=== PATIENT | female | born 1985 | race Caucasian/White ===

== ENCOUNTER 2018-07-18 06:21 | Day surgery (SDC) | payer BC ==
[2018-07-18] MEDS ORDERED: Propofol 200 MG/20 ML SDV ONE (06:59)
[2018-07-18] MEDS ORDERED: Lidocaine 2% 5 ML SDV ONE (06:59)
[2018-07-18] MEDS ORDERED: fentaNYL 100 MCG/2 ML SDV ONE (06:59)
[2018-07-18] MEDS ORDERED: Midazolam 1 MG/ML 2 ML SDV ONE (06:59)
--- NOTE | 2018-07-18 07:12 | PCM.PREANE ---
Preanesthetic Assessment - Anesthesia/Transfusion/Family Hx Anesthesia History: Prior Anesthesia Without Reaction Type of Anesthesia Reaction: Excessive Itching (from narcotics) Other Type of Anesthesia Reaction Comment: "I wake up panicky" Family History of Anesthesia Reaction: No Transfusion History: No Prior Transfusion(s) Intubation History: Unknown - Review of Systems General: No Symptoms Pulmonary: No Symptoms Cardiovascular: No Symptoms Gastrointestinal: No Symptoms Neurological: No Symptoms Other: Reports: None - Physical Assessment O2 Sat by Pulse Oximetry: 95 Respiratory Rate: 16 Vital Signs: Last Vital Signs Temp 36.6 C 07/18/18 07:00 Pulse 79 07/18/18 07:00 Resp 16 07/18/18 07:00 BP 109/55 L 07/18/18 07:00 Pulse Ox 95 07/18/18 07:00 Height: 1.65 m Weight: 81.647 kg ASA Class: 2 Mental Status: Alert & Oriented x3 Airway Class: Mallampati = 2 Dentition: Reports: Normal Dentition Thyro-Mental Finger Breadths: 3 Mouth Opening Finger Breadths: 3 ROM/Head Extension: Full Lungs: Clear to Auscultation, Normal Respiratory Effort Cardiovascular: Regular Rate, Regular Rhythm - Lab Values: Laboratory Last Values Urine HCG, Qual NEGATIVE (NEGATIVE) 07/18/18 06:45 - Allergies Allergies/Adverse Reactions: Allergies Allergy/AdvReac Type Severity Reaction Status Date / Time raw vegetable Allergy "itchy Verified 07/13/18 09:03 throat" raw fruits Allergy "itchy Uncoded 07/13/18 09:03 throat" - Blood Blood Available: No - Anesthesia Plan Pre-Op Medication Ordered: None - Acknowledgements Anesthesia Type Planned: MAC Pt an Appropriate Candidate for the Planned Anesthesia: Yes Alternatives and Risks of Anesthesia Discussed w Pt/Guardian: Yes Pt/Guardian Understands and Agrees with Anesthesia Plan: Yes PreAnesthesia Questionnaire HEENT History: Reports: Other (See Below) Other HEENT History: wears contacts/glasses Cardiovascular History: Reports: None Respiratory History: Reports: None Gastrointestinal History: Reports: None Genitourinary History: Reports: None 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: Musculoskeletal History: Reports: None Neurological History: Reports: None Psychiatric History: Reports: None Endocrine/Metabolic History: Reports: None, Obesity/BMI 30+ (BMI 30) Hematologic History: Reports: None Immunologic History: Reports: Other (See Below) (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, ankles, knees, hands) Oncologic (Cancer) History: Reports: None Dermatologic History: Reports: None - Past Surgical History Head Surgeries/Procedures: Reports: None Cardiovascular Surgical History: Reports: None Respiratory Surgical History: Reports: None GI Surgical History: Reports: Cholecystectomy Female Surgical History: Reports: Section, D&C, Other (See Below) Other Female Surgeries/Procedures: hx ovarian cystectomy Endocrine Surgical History: Reports: None Neurological Surgical History: Reports: None Musculoskeletal Surgical History: Reports: None Oncologic Surgical History: Reports: None Dermatological Surgical History: Reports: None - SUBSTANCE USE Smoking Status *Q: Never Smoker Recreational Drug Use History: No - HOME MEDS Home Medications: Home Meds Etonogestrel [Nexplanon] 1 device VAG ONETIME 07/13/18 [History] - CURRENT (IN HOUSE) MEDS Current Meds: Current Medications Hydrocodone Bitart/Acetaminophen ([place] 325-5 Mg) 1 tab PO Q4H PRN PRN Reason: Pain Bupivacaine HCl/Epinephrine Bitart (Marcaine 0.25%/Epinephrine 1:200,000) 10 ml INJECT ONETIME ONE Stop: 07/18/18 08:01 Cefazolin Sodium/Dextrose 2 gm (/ Premix) 50 mls @ 100 mls/hr IV ONETIME ONE Stop: 07/18/18 08:29 Lactated Ringer's (Ringers, Lactated) 1,000 mls @ 125 mls/hr IV ASDIRECTED GIOVANNI Last Admin: 07/18/18 07:02 Dose: 125 mls/hr Discontinued Medications Fentanyl (Sublimaze) Confirm Administered Dose 100 mcg .ROUTE .STK-MED ONE Stop: 07/18/18 07:00 Lidocaine (Xylocaine-Mpf 2%) Confirm Administered Dose 5 ml .ROUTE .STK-MED ONE Stop: 07/18/18 07:00 Midazolam HCl (Versed 1 Mg/Ml) Confirm Administered Dose 2 mg .ROUTE .STK-MED ONE Stop: 07/18/18 07:00 Propofol (Diprivan 20 Ml) Confirm Administered Dose 200 mg .ROUTE .STK-MED ONE Stop: 07/18/18 07:00
[2018-07-18] MEDS ORDERED: Bupivacaine 0.25%/EPINEPHrine 1:200,000 10 ML SDV ONE (07:25)
[2018-07-18] MEDS ORDERED: ceFAZolin 2 GM in Premix Bag 1 BAG IV ONE (08:00)
[2018-07-18] MEDS ORDERED: Lactated Ringers 1,000 ML IV SCH (08:00)
[2018-07-18] MEDS ORDERED: Acetaminophen/HYDROcodone 325-5 MG Tab PO PRN (08:00)
[2018-07-18] MEDS ORDERED: Bupivacaine 0.25%/EPINEPHrine 1:200,000 10 ML SDV INJECT ONE (08:00)
[2018-07-18] MEDS ORDERED: ceFAZolin/Dextrose,Iso-Osmotic 2 GM/50 ML Duplex Bag IV ONE (08:04)
[2018-07-18] MEDS ORDERED: Ketorolac 30 MG/ML SDV ONE (08:31)
[2018-07-18] MEDS ORDERED: diphenhydrAMINE 50 MG/ML SDV IVPUSH PRN (08:38)
[2018-07-18] MEDS ORDERED: diphenhydrAMINE 50 MG/ML SDV ONE (08:42)
--- NOTE | 2018-07-18 09:29 | PCM.POSTAN ---
POST ANESTHESIA ASSESSMENT - MENTAL STATUS Mental Status: Alert, Oriented - RESPIRATORY Respiratory Status: Respiratory Rate WNL, Airway Patent, O2 Saturation Stable - CARDIOVASCULAR CV Status: Pulse Rate WNL, Blood Pressure Stable - GASTROINTESTINAL GI Status: No Symptoms - PAIN Pain Score: 0 - POST OP HYDRATION Hydration Status: Adequate & Stable - OBSERVATIONS Free Text/Narrative:: no anesthesia problems, patient skipped recovery room phase of postoperative care
--- NOTE | 2018-07-18 17:17 | PCM.OPNOTE ---
- General Post-Op/Procedure Note Date of Surgery/Procedure: 07/18/18 Operative Procedure(s): right carpal tunnel release Pre Op Diagnosis: right carpal tunnel Post-Op Diagnosis: Same Anesthesia Technique: Local, MAC Primary Surgeon: Deepika Fajardo Lump Room Supervisor: Rolanda Ortiz Complications: None Condition: Good Free Text/Narrative:: Intake & Output 07/18/18 07/18/18 07/18/18 07:59 15:59 23:59 Intake Total 400 Balance 400
--- NOTE | 2018-07-22 14:21 | OR ---
SURGEON: PAVAN GALE MD DATE OF PROCEDURE: 07/18/2018 PREOPERATIVE DIAGNOSIS: Right carpal tunnel syndrome. POSTOPERATIVE DIAGNOSIS: Right carpal tunnel syndrome. PROCEDURE: Right carpal tunnel release. ROCKET SCIENTIST: JAYA Yoo. REASON FOR AND ROLE OF ROCKET SCIENTIST: Retraction, prepping, draping, positioning and closure assistance. ANESTHESIA: Local MAC. INDICATIONS: Ms. Chang is a 33-year-old female, seen today in evaluation for right carpal tunnel syndrome. Risks and benefits of release were discussed with her including, but not limited to, bleeding, infection, damage to underlying or overlying structures, possible need for future interventions, and possible scarring. PROCEDURE IN DETAIL: After informed consent was obtained and placed on the chart, the patient was brought to the operating theater and laid in the supine position. After adequate local MAC anesthesia was obtained, the area was prepped and draped, and a time-out was completed to confirm side and site. The area was then prepped and draped, the arm was exsanguinated, and tourniquet was insufflated to 200 mmHg. Attention was then paid to dissection over the transverse carpal ligament. A #15 blade was used to dissect through the skin and subcutaneous tissues until breach of the ligament. Under direct visualization, the dissection was carried distally and proximally under direct visualization until complete release. Once adequately released, attention was then paid to irrigation and closure of the wound using a 5-0 nylon stitch in a horizontal mattress fashion. The wound was dressed with Xeroform fluffs and a Kerlix gauze dressing and a 2-inch Omar wrap. The patient tolerated this well. All counts and needles were correct at the end of the case. FOLLOWUP INSTRUCTIONS: The patient will see us in 10 to 14 days for suture removal, sooner if any problems, questions, or concerns. She was given a prescription for pain control if needed. HEGGTHE / MODL /[id number]
== END 2018-07-18 09:40 | disposition home or self-care (01) ==
LOC: MW.SDS 06:21
PROVIDERS: ATTEND Plastic Surgery
DX: G56.01 Carpal tunnel syndrome, right upper limb (principal); E66.9 Obesity, unspecified; Z68.29 Body mass index [BMI] 29.0-29.9, adult; Z91.018 Allergy to other foods
CPT/HCPCS: 64721; 81025; J0690; J1200; J1885; J2001; J2250; J2704; J3010; J3490; J7120; 01810

== ENCOUNTER 2018-07-19 03:32 | Emergency (ER) | payer BC ==
--- NOTE | 2018-07-19 04:03 | EDM.PDOC ---
ED HPI GENERAL MEDICAL PROBLEM - General Chief Complaint: Abdominal Pain Stated Complaint: ABDOMINAL PAIN- RECENT RT HAND SURGERY Time Seen by Provider: 07/19/18 04:02 - History of Present Illness INITIAL COMMENTS - FREE TEXT/NARRATIVE: HISTORY AND PHYSICAL: History of present illness: Patient's a 33-year-old white female who presents with a concern of epigastric discomfort and nausea and vomiting after using Ultram tonight for postoperative pain related to carpal tunnel syndrome is no trauma no fever chills or other complaints. Review of systems: As per history of present illness and below otherwise all systems reviewed and negative. Past medical history: As per history of present illness and as reviewed below otherwise noncontributory. Surgical history: As per history of present illness and as reviewed below otherwise noncontributory. Social history: No reported history of drug or alcohol abuse. Family history: As per history of present illness and as reviewed below otherwise noncontributory. Physical exam: HEENT: Atraumatic, normocephalic, pupils reactive, negative for conjunctival pallor or scleral icterus, mucous membranes moist, throat clear, neck supple, nontender, trachea midline. Lungs: Clear to auscultation, breath sounds equal bilaterally, chest nontender. Heart: S1S2, regular, negative for clicks, rubs, or JVD. Abdomen: Soft, nondistended, nontender. Negative for masses or hepatosplenomegaly. Negative for costovertebral tenderness. Pelvis: Stable nontender. Genitourinary: Deferred. Rectal: Deferred. Extremities: Atraumatic, negative for cords or calf pain. Neurovascular unremarkable. Neuro: Awake, alert, oriented. Cranial nerves II through XII unremarkable. Cerebellum unremarkable. Motor and sensory unremarkable throughout. Exam nonfocal. Diagnostics: None Therapeutics: Saline 1 L bolus Zofran 4 mg IV Protonix 80 mg IV Impression: #1 drug reaction #2 gastritis Definitive disposition and diagnosis as appropriate pending reevaluation and review of above. Middle Abdominal Pain Score (Numeric/FACES): 9 - Related Data Allergies Allergy/AdvReac Type Severity Reaction Status Date / Time raw vegetable Allergy "itchy Verified 07/19/18 03:39 throat" raw fruits Allergy "itchy Uncoded 07/19/18 03:39 throat" Home Meds: Home Meds Etonogestrel [Nexplanon] 1 device VAG ONETIME 07/13/18 [History] traMADol [Ultram] 50 mg PO Q4H PRN 07/19/18 [History] Past Medical History HEENT History: Reports: Other (See Below) Other HEENT History: wears contacts/glasses Cardiovascular History: Reports: None Respiratory History: Reports: None Gastrointestinal History: Reports: None Genitourinary History: Reports: None OTHER SPATIAL SCIENTIST History: Reports: Musculoskeletal History: Reports: None Neurological History: Reports: None Psychiatric History: Reports: None Endocrine/Metabolic History: Reports: None, Obesity/BMI 30+ Hematologic History: Reports: None Immunologic History: Reports: Other (See Below) Oncologic (Cancer) History: Reports: None Dermatologic History: Reports: None - Infectious Disease History Infectious Disease History: Reports: Chicken Pox - Past Surgical History Head Surgeries/Procedures: Reports: None Cardiovascular Surgical History: Reports: None Respiratory Surgical History: Reports: None GI Surgical History: Reports: Cholecystectomy Female Surgical History: Reports: Section, D&C, Other (See Below) Other Female Surgeries/Procedures: hx ovarian cystectomy Endocrine Surgical History: Reports: None Neurological Surgical History: Reports: None Musculoskeletal Surgical History: Reports: None Oncologic Surgical History: Reports: None Dermatological Surgical History: Reports: None Social & Family History - Family History Family Medical History: Noncontributory - Tobacco Use Smoking Status *Q: Never Smoker Second Hand Smoke Exposure: No - Caffeine Use Caffeine Use: Reports: Coffee - Recreational Drug Use Recreational Drug Use: No ED ROS GENERAL - Review of Systems Review Of Systems: ROS reveals no pertinent complaints other than HPI. ED EXAM, GENERAL - Physical Exam Exam: See Below (See dictation) Course - Vital Signs Last Recorded V/S: Last Vital Signs Temp 35.9 C 07/19/18 03:40 Pulse 69 07/19/18 03:40 Resp 22 H 07/19/18 03:40 BP 111/53 L 07/19/18 03:40 Pulse Ox 98 07/19/18 03:40 Departure - Departure Time of Disposition: 04:01 Disposition: Home, Self-Care 01 Condition: Good Clinical Impression: Drug reaction, Gastritis - Discharge Information Referrals: José Antonio Styles MD [Primary Care Provider] - Additional Instructions: The following information is given to patients seen in the emergency department who are being discharged to home. This information is to outline your options for follow-up care. We provide all patients seen in our emergency department with a follow-up referral. The need for follow-up, as well as the timing and circumstances, are variable depending upon the specifics of your emergency department visit. If you don't have a primary care physician on staff, we will provide you with a referral. We always advise you to contact your personal physician following an emergency department visit to inform them of the circumstance of the visit and for follow-up with them and/or the need for any referrals to a consulting specialist. The emergency department will also refer you to a specialist when appropriate. This referral assures that you have the opportunity for followup care with a specialist. All of these measure are taken in an effort to provide you with optimal care, which includes your followup. Under all circumstances we always encourage you to contact your private physician who remains a resource for coordinating your care. When calling for followup care, please make the office aware that this follow-up is from your recent emergency room visit. If for any reason you are refused follow-up, please contact the [facility] emergency department at and asked to speak to the emergency department charge nurse. Aamir Protonix as directed Tylenol as directed follow-up private medical doctor and surgery as discussed return as needed as discussed
[2018-07-19] MEDS ORDERED: Pantoprazole 80 MG in Sodium Chloride 0.9% 20 ML IVPUSH ONE (04:05)
[2018-07-19] MEDS ORDERED: Ondansetron 4 MG/2 ML SDV IVPUSH ONE (04:05)
[2018-07-19] MEDS ORDERED: Sodium Chloride 0.9% 1,000 ML IV SCH (04:15)
== END 2018-07-19 05:35 | disposition home or self-care (01) ==
LOC: MW.ED 03:32
DX: R10.13 Epigastric pain (principal); T40.4X5A Adverse effect of other synthetic narcotics, initial encounter; K29.70 Gastritis, unspecified, without bleeding; Z91.018 Allergy to other foods
CPT/HCPCS: 96361; 96374; 96375; 99283; C9113; J2405; J7040; 99282

== ENCOUNTER 2025-01-04 20:30 | Emergency (ER) | payer BC ==
[2025-01-04] MEDS: Ketorolac 30 MG/ML SDV IVPUSH ONE (20:52)
[2025-01-04] MEDS: Ondansetron 4 MG/2 ML SDV IVPUSH ONE (20:53)
[2025-01-04 20:55] LABS: BASOPHILS ABSOLUTE AUTO 0.06 K/uL (0.00-0.20); BASOPHILS PERCENT AUTO 0.7 % (0.0-1.0); EOSINOPHILS ABSOLUTE AUTO 0.10 K/uL (0.00-0.45); EOSINOPHILS PERCENT AUTO 1.2 % (0.0-6.0); IMMATURE GRAN ABSOLUTE AUTO 0.01 K/uL (0.00-0.05); IMMATURE GRAN PERCENT AUTO 0.1 % (0.0-0.4); LYMPHOCYTES ABSOLUTE AUTO 4.34 K/uL (1.00-4.80); LYMPHOCYTES PERCENT AUTO 51.2 % (24.0-44.0); MEAN PLATELET VOLUME 9.3 fL (9.4-12.3); MONOCYTES ABSOLUTE AUTO 0.58 K/uL (0.00-0.80); MONOCYTES PERCENT AUTO 6.8 % (0.0-8.0); NEUTROPHILS ABSOLUTE AUTO 3.38 K/uL (1.80-7.70); NEUTROPHILS PERCENT AUTO 40.0 % (41.0-71.0); NRBC ABSOLUTE 0.00 K/uL (0.00-0.02); NRBC PERCENT 0.0 /100WBC (0.0-0.2); PLATELET COUNT,PLT 242 K/uL (150-400); RED BLOOD CELL COUNT 4.24 M/uL (4.10-5.30); WHITE BLOOD CELL COUNT,WBC 8.47 K/uL (3.9-11.3)
[2025-01-04] MEDS: diphenhydrAMINE 50 MG/ML SDV IVPUSH ONE (21:00)
[2025-01-04 21:20] LABS: A/G RATIO 1.2 (0.9-1.6); ALANINE AMINOTRANSFERASE,ALT 27 IU/L (14-63); ASPARTATE AMNIOTRANSFERASE,AST 18 IU/L (15-37); BILIRUBIN TOTAL 0.3 mg/dL (0.2-1.0); BLOOD UREA NITROGEN,BUN 16 mg/dL (7.0-18.0); CARBON DIOXIDE,CO2 21.4 mmol/L (21.0-32.0); CHLORIDE,CL 105 mmol/L (98-107); CREATININE 1.1 mg/dL (0.6-1.0); GLUCOSE RANDOM 117 mg/dL (74-106); POTASSIUM,K 3.7 mmol/L (3.5-5.1); PROTEIN TOTAL,TP 7.4 g/dL (6.4-8.2); SODIUM,NA 140 mmol/L (136-145)
[2025-01-04 21:24] LABS: ESTIMATED GFR 66 mL/min (>60)
[2025-01-04 21:43] LABS: APPEARANCE,URINE SLT CLOUDY; GLUCOSE,URINE NEGATIVE (NEGATIVE); OCCULT BLOOD,URINE LARGE (NEGATIVE)
[2025-01-04 21:52] LABS: EPITHELIAL CELLS,URINE FEW (NONE-FEW)
== END 2025-01-04 23:02 | disposition home or self-care (01) ==
LOC: MW.ED 20:30
DX: N83.202 Unspecified ovarian cyst, left side (principal); Z75.3 Unavailability and inaccessibility of health-care facilities
CPT/HCPCS: 36415; 76856; 80053; 81001; 81025; 83690; 85025; 96361; 96374; 96375; 99284; J1200; J1885; J2270; J2405; J7030